=== PATIENT | female | born 1980 | race Caucasian/White ===

== ENCOUNTER 2017-08-12 16:37 | Emergency (ER) | payer OTHER, MEDICAID ==
[~2017-08-12] VITALS: Ht 175.3 cm; Wt 113.4 kg
[~2017-08-12 16:37] MED LIST: ACETAMINOPHEN-1 EAC1 PO; AMOXICILLIN 50500 MG PO; CHANTIX1 MG PO; CORTISPORIN OTI10 M2 OTIC; LASIX 20 MG TAB20 MG PO; PHENERGAN 25 MG25 M1 PO; PREDNISONE 20 M20 M1 PO; TESSALON PERLE100 MG PO; VENTOLIN HFA 1818 GM INH; ZANTAC 150MG T150 MG PO; ZPAK PO
[2017-08-12 17:35] LABS: ABSOLUTE EOSINOPHILS 0.1 thou/uL (0.0-0.7); ABSOLUTE NEUTROPHILS 4.2 thou/uL (1.6-8.1); EOSINOPHILS 0.8 %; HEMOGLOBIN 13.1 gm/dL (12.0-15.0); MPV 8.4 fl. (7.2-11.1); RDW-CV 14.1 % (10.5-14.5)
[2017-08-12 17:36] LABS: ABSOLUTE BASOPHILS 0.1 thou/uL (0.0-0.2); ABSOLUTE LYMPHOCYTES 2.9 thou/uL (0.8-5.3); ABSOLUTE MONOCYTES 0.4 thou/uL (0.0-1.2); BASOPHILS 1.1 %; HEMATOCRIT 38.6 % (37.0-47.0); LYMPHOCYTES 37.8 %; MCH 29.5 pg (26.0-34.0); MCHC 33.9 g/dL (28.0-37.0); MCV 87.1 fL (80.0-100.0); MONOCYTES 5.8 %; NUCLEATED RBCS 0 /100WBC; PLATELET COUNT* 224 thou/uL (150-400); POLYS 54.5 %; RBC 4.44 mil/uL (4.20-5.00); WBC 7.7 thou/uL (4.0-11.0)
[2017-08-12 17:54] LABS: CALCIUM 8.7 mg/dL (8.5-10.1); CREATININE 0.7 mg/dL (0.6-1.3); POTASSIUM 3.8 mmol/L (3.5-5.1)
[2017-08-12 17:58] LABS: ALBUMIN 3.4 g/dL (3.4-5.0); TOTAL BILIRUBIN 0.3 mg/dL (<0.1-1.0); TOTAL PROTEIN 6.8 g/dL (6.4-8.2)
[2017-08-12 18:12] LABS: URINE BILIRUBIN NEGATIVE (Negative); URINE BLOOD 3+ (Negative); URINE CLARITY CLEAR; URINE COLOR YELLOW; URINE GLUCOSE-RANDOM NEGATIVE (Negative); URINE KETONES NEGATIVE (Negative); URINE LEUKOCYTES NEGATIVE (Negative); URINE NITRITE NEGATIVE (Negative); URINE PROTEIN NEGATIVE (Negative); URINE SPECIFIC GRAVITY >= 1.030 (1.005-1.030); URINE UROBILINOGEN 0.2 E.U./dl (0.2-1.0)
[2017-08-12 18:35] LABS: BACTERIA 1-9 Few /HPF (None Seen); CASTS None Seen /LPF (None Seen); CRYSTALS None Seen /LPF (None Seen); MUCUS 4-6 Moderate strn/LPF (None Seen); SQUAMOUS >10 Many /LPF (0-3); URINE RBC 3-10 Few /HPF (0-2); URINE WBC 0-5 Rare /HPF (0-5)
[2017-08-12] MEDS ORDERED: ONDANSETRON HCL4 M2 PO (19:57)
[2017-08-12] MEDS ORDERED: TRAMADOL 50 MG50 MG PO (20:04)
[2017-08-12 20:35] VITALS: BP 140/83
== END 2017-08-12 20:35 | disposition home or self-care (01) ==
LOC: M.ERS 16:37
PROVIDERS: Nurse Practitioner Family
DX: R10.13 Epigastric pain (principal); F41.9 Anxiety disorder, unspecified; K21.9 Gastro-esophageal reflux disease without esophagitis; F17.210 Nicotine dependence, cigarettes, uncomplicated; Z88.8 Allergy status to other drugs, medicaments and biological substances

== ENCOUNTER → 2018-01-18 | Outpatient (CLI) | payer OTHER, MEDICAID ==
[~2018-01-18] MED LIST changes: +ONDANSETRON HCL4 M2 PO; +TRAMADOL 50 MG50 MG PO
== END ==
LOC: M.ULTRA 14:51
DX: N64.52 Nipple discharge (principal)

== ENCOUNTER 2018-05-16 21:47 | Emergency (ER) | payer OTHER, MEDICAID ==
[~2018-05-16] VITALS: Ht 175.3 cm; Wt 117.9 kg
[2018-05-16] MEDS ORDERED: PRILOSEC 20 MG20 MG (21:59)
[2018-05-17] MEDS ORDERED: MIRALAX119 GM PO (00:04)
[2018-05-17] MEDS ORDERED: ZOFRAN ODT4 MG PO (00:04)
[2018-05-17] MEDS ORDERED: [UNRECOGNIZED DRUG - OTHER] PO ×2 (00:06→00:07)
[2018-05-17 00:20] VITALS: BP 164/90
== END 2018-05-17 00:21 | disposition home or self-care (01) ==
LOC: M.ERS 21:47
DX: K59.00 Constipation, unspecified (principal); R03.0 Elevated blood-pressure reading, without diagnosis of hypertension; F17.210 Nicotine dependence, cigarettes, uncomplicated; F41.9 Anxiety disorder, unspecified; K21.9 Gastro-esophageal reflux disease without esophagitis; N80.9 Endometriosis, unspecified; Z88.8 Allergy status to other drugs, medicaments and biological substances

== ENCOUNTER 2018-09-03 08:37 | Emergency (ER) | payer OTHER, MEDICAID ==
[~2018-09-03] VITALS: Ht 175.3 cm; Wt 113.4 kg
[~2018-09-03 08:37] MED LIST changes: +MIRALAX119 GM PO; +PRILOSEC 20 MG20 MG; +ZOFRAN ODT4 MG PO; +[UNRECOGNIZED DRUG - OTHER] PO
[2018-09-03 09:02] LABS: URINE BILIRUBIN NEGATIVE (Negative); URINE BLOOD NEGATIVE (Negative); URINE CLARITY CLEAR; URINE COLOR DARK YELLOW; URINE GLUCOSE-RANDOM NEGATIVE (Negative); URINE KETONES NEGATIVE (Negative); URINE LEUKOCYTES-REFLEX NEGATIVE (Negative); URINE NITRITE-REFLEX NEGATIVE (Negative); URINE PROTEIN TRACE (Negative); URINE SPECIFIC GRAVITY >= 1.030 (1.005-1.030); URINE UROBILINOGEN 0.2 E.U./dl (0.2-1.0)
[2018-09-03] MEDS ORDERED: CLEOCIN100 MG VAG (09:39)
[2018-09-03 09:45] VITALS: BP 150/77
== END 2018-09-03 09:46 | disposition home or self-care (01) ==
LOC: M.ERS 08:37
PROVIDERS: Emergency Medicine
DX: N76.0 Acute vaginitis (principal); B96.89 Other specified bacterial agents as the cause of diseases classified elsewhere; Z11.3 Encounter for screening for infections with a predominantly sexual mode of transmission; K21.9 Gastro-esophageal reflux disease without esophagitis; F41.9 Anxiety disorder, unspecified; Z88.1 Allergy status to other antibiotic agents; Z88.6 Allergy status to analgesic agent; F17.210 Nicotine dependence, cigarettes, uncomplicated

== ENCOUNTER 2019-10-26 11:18 | Emergency (ER) | payer OTHER, MEDICAID ==
[~2019-10-26] VITALS: Ht 175.3 cm; Wt 81.7 kg
[~2019-10-26 11:18] MED LIST changes: +CLEOCIN100 MG VAG
[2019-10-26] MEDS ORDERED: NORCO 5-325 TA1 EAC2 PO (11:52)
[2019-10-26 12:18] VITALS: BP 132/85
== END 2019-10-26 12:55 | disposition home or self-care (01) ==
LOC: M.ERS 11:18
DX: S93.401A Sprain of unspecified ligament of right ankle, initial encounter (principal); S93.402A Sprain of unspecified ligament of left ankle, initial encounter; K21.9 Gastro-esophageal reflux disease without esophagitis; F17.210 Nicotine dependence, cigarettes, uncomplicated; Z88.6 Allergy status to analgesic agent; Z88.1 Allergy status to other antibiotic agents; Z98.51 Tubal ligation status; X50.1XXA Overexertion from prolonged static or awkward postures, initial encounter; Y93.89 Activity, other specified; Y92.89 Other specified places as the place of occurrence of the external cause; Y99.9 Unspecified external cause status

== ENCOUNTER 2020-02-08 14:08 | Emergency (ER) | payer OTHER, MEDICAID ==
[~2020-02-08] VITALS: Ht 175.3 cm; Wt 113.4 kg
[~2020-02-08 14:08] MED LIST changes: +NORCO 5-325 TA1 EAC2 PO
[2020-02-08 14:41] VITALS: BP 141/66
[2020-02-08] MEDS ORDERED: PRILOSEC OTC20 MG PO (14:49)
[2020-02-08] MEDS ORDERED: CENTANY30 GM TOP (15:07)
[2020-02-08] MEDS ORDERED: KEFLEX500 M1 PO (15:07)
== END 2020-02-08 15:16 | disposition home or self-care (01) ==
LOC: M.ERS 14:08
DX: L03.311 Cellulitis of abdominal wall (principal); K21.9 Gastro-esophageal reflux disease without esophagitis; F17.210 Nicotine dependence, cigarettes, uncomplicated; Z98.51 Tubal ligation status; Z79.899 Other long term (current) drug therapy; Z88.8 Allergy status to other drugs, medicaments and biological substances

== ENCOUNTER 2020-08-05 17:39 | Emergency (ER) | payer OTHER, MEDICAID ==
[~2020-08-05] VITALS: Ht 175.3 cm; Wt 104.3 kg
[~2020-08-05 17:39] MED LIST changes: +CENTANY30 GM TOP; +KEFLEX500 M1 PO; +PRILOSEC OTC20 MG PO
[2020-08-05] MEDS ORDERED: NORCO5 PO (18:05)
[2020-08-05] MEDS ORDERED: AMOXICILLIN 50500 MG PO (18:05)
[2020-08-05] MEDS ORDERED: CIPRODEX OTIC7.5 ML OTIC (18:05)
[2020-08-05 18:13] VITALS: BP 140/92
== END 2020-08-05 18:13 | disposition home or self-care (01) ==
LOC: M.ERS 17:39
DX: H60.92 Unspecified otitis externa, left ear (principal); K21.9 Gastro-esophageal reflux disease without esophagitis; N80.9 Endometriosis, unspecified; F17.210 Nicotine dependence, cigarettes, uncomplicated; Z88.6 Allergy status to analgesic agent; Z88.8 Allergy status to other drugs, medicaments and biological substances; Z98.51 Tubal ligation status

== ENCOUNTER 2020-12-20 13:09 | Emergency (ER) | payer OTHER, MEDICAID ==
[~2020-12-20] VITALS: Ht 175.3 cm; Wt 120.7 kg
[~2020-12-20 13:09] MED LIST changes: +CIPRODEX OTIC7.5 ML OTIC; +NORCO5 PO
[2020-12-20] MEDS ORDERED: AMOXICILLIN 50500 MG PO (13:33)
[2020-12-20] MEDS ORDERED: HYDROCODON-ACE1 EAC7 PO (13:33)
[2020-12-20] MEDS ORDERED: CORTISPORIN OTI10 M2 OTIC (13:33)
[2020-12-20 13:40] VITALS: BP 162/103
== END 2020-12-20 13:41 | disposition home or self-care (01) ==
LOC: M.ERS 13:09
DX: H60.91 Unspecified otitis externa, right ear (principal); H66.91 Otitis media, unspecified, right ear; K21.9 Gastro-esophageal reflux disease without esophagitis; F17.210 Nicotine dependence, cigarettes, uncomplicated; Z98.51 Tubal ligation status; Z88.1 Allergy status to other antibiotic agents; Z88.8 Allergy status to other drugs, medicaments and biological substances

== ENCOUNTER 2021-02-09 11:49 | Emergency (ER) | payer OTHER, MEDICAID ==
[~2021-02-09] VITALS: Ht 175.3 cm; Wt 90.7 kg
[~2021-02-09 11:49] MED LIST changes: +HYDROCODON-ACE1 EAC7 PO
[2021-02-09] MEDS ORDERED: NORCO5 PO (13:16)
[2021-02-09 13:46] VITALS: BP 148/94
== END 2021-02-09 13:47 | disposition home or self-care (01) ==
LOC: M.ERS 11:49
DX: S82.65XA Nondisplaced fracture of lateral malleolus of left fibula, initial encounter for closed fracture (principal); K21.9 Gastro-esophageal reflux disease without esophagitis; F41.9 Anxiety disorder, unspecified; F17.210 Nicotine dependence, cigarettes, uncomplicated; Z98.51 Tubal ligation status; Z79.899 Other long term (current) drug therapy; Z88.5 Allergy status to narcotic agent; Z88.6 Allergy status to analgesic agent; X50.1XXA Overexertion from prolonged static or awkward postures, initial encounter; Y93.89 Activity, other specified; Y92.89 Other specified places as the place of occurrence of the external cause; Y99.8 Other external cause status

== ENCOUNTER 2021-05-06 23:39 | Emergency (ER) | payer OTHER, MEDICAID ==
[~2021-05-06] VITALS: Ht 175.3 cm; Wt 117.9 kg
[2021-05-07 00:12] LABS: URINE BILIRUBIN NEGATIVE (Negative); URINE BLOOD NEGATIVE (Negative); URINE CLARITY CLEAR; URINE COLOR YELLOW; URINE GLUCOSE-RANDOM NEGATIVE (Negative); URINE KETONES NEGATIVE (Negative); URINE LEUKOCYTES NEGATIVE (Negative); URINE NITRITE NEGATIVE (Negative); URINE PROTEIN NEGATIVE (Negative); URINE SPECIFIC GRAVITY 1.015 (1.005-1.030); URINE UROBILINOGEN 0.2 E.U./dl (0.2-1.0)
[2021-05-07 00:21] LABS: AMP/METHAMP Negative (Negative); BARBITURATES Negative (Negative); BENZODIAZEPINES Negative (Negative); COCAINE Negative (Negative); METHADONE Negative (Negative); OPIATES Negative (Negative); PCP Negative (Negative); THC POSITIVE (Negative)
[2021-05-07 01:39] VITALS: BP 148/94
== END 2021-05-07 01:39 | disposition home or self-care (01) ==
LOC: M.ERS 23:39
PROVIDERS: Personal Emergency Response Attendant
DX: F10.129 Alcohol abuse with intoxication, unspecified (principal); Y90.9 Presence of alcohol in blood, level not specified; F32.9 Major depressive disorder, single episode, unspecified; K21.9 Gastro-esophageal reflux disease without esophagitis; N80.9 Endometriosis, unspecified; Z88.6 Allergy status to analgesic agent; Z88.8 Allergy status to other drugs, medicaments and biological substances; Z98.51 Tubal ligation status; Z79.899 Other long term (current) drug therapy